=== PATIENT | male | born 1970 | race Caucasian/White ===

== ENCOUNTER 2024-03-05 04:08 | Day surgery (SDC) | payer OTHER ==
[2024-03-05] VITALS (236 sets, daily range): BP systolic 119–232; BP diastolic 65–152
[~2024-03-05] VITALS: Ht 182.9 cm; Wt 75.0 kg
[2024-03-05] MEDS ORDERED: diazePAM 5 MG/TAB PO PRN ×2 (07:30→08:30)
[2024-03-05] MEDS ORDERED: CYANOCOBALAMIN 500 MCG/TAB ( B12) PO PRN (07:30)
[2024-03-05] MEDS ORDERED: cloNIDine HCL 0.1 MG/TAB PO PRN (07:30)
[2024-03-05] MEDS ORDERED: FAMOTIDINE 20 MG/TAB PO PRN (07:30)
[2024-03-05] MEDS ORDERED: ALBUTEROL SULFATE 2.5 MG VIAL IN PRN (07:30)
[2024-03-05] MEDS ORDERED: SCOPOLAMINE 1.5 MG DIS TD PRN (07:30)
[2024-03-05] MEDS ORDERED: LACTATED RINGER'S 1,000 ML IV PRN ×3 (07:30→19:00)
[2024-03-05] MEDS ORDERED: PANTOPRAZOLE SODIUM Sesquihydr 40 MG/TAB PO PRN (07:30)
[2024-03-05] MEDS ORDERED: ASCORBIC ACID 4,000 MG in SODIUM CHLORIDE 0.9% 1,000 ML IV SCH (08:00)
[2024-03-05 08:07] LABS: BASO% 0.6 % (0-3); EOS% 4.4 % (0-8); HEMATOCRIT 41.5 % (39.0-50.0); HEMOGLOBIN 13.8 g/dl (14.0-18.0); IMMATURE GRANULOCYTES 0.2 % (0.0-5.0); LYMPH% 24.9 % (15-41); MEAN CELL VOLUME 94.3 fL CALC (80.0-100.0); MEAN CORPUSCULAR HGB 31.4 pG CALC (26.0-32.0); MEAN CORPUSCULAR HGB CONC 33.3 g/dL CAL (32.0-36.0); NEUT# 4.98 thou/uL (1.82-7.42); NEUT% 58.9 % (42-76); RED BLOOD COUNT 4.4 mill/uL (4.70-6.10); RED CELL DISTRI WIDTH 15.5 % (11.5-15.5)
[2024-03-05 08:19] LABS: ALBUMIN 4.2 g/dL (3.2-5.0); BILIRUBIN, TOTAL 0.4 mg/dL (0.2-1.3); CREATININE 0.8 mg/dL (0.7-1.3); POTASSIUM 4.4 mmol/l (3.5-5.1)
[2024-03-05] MEDS ORDERED: CARVEDILOL 25 MG/TAB PO SCH (08:30)
[2024-03-05] MEDS ORDERED: LISINOPRIL 20 MG/TAB PO SCH (08:30)
[2024-03-05] MEDS ORDERED: GABAPENTIN 300 MG/CAP PO SCH (08:30)
[2024-03-05] MEDS ORDERED: CLOPIDOGREL BISULFATE 75 MG/TAB TAB PO SCH (08:30)
[2024-03-05] MEDS ORDERED: NEURONTIN600 MG PO (08:36)
[2024-03-05] MEDS ORDERED: ASPIRIN LOW81 M1 PO (08:37)
[2024-03-05] MEDS ORDERED: ALTACE10 MG PO (08:37)
[2024-03-05] MEDS ORDERED: SOMA350 MG PO (08:37)
[2024-03-05] MEDS ORDERED: PLAVIX75 MG PO (08:38)
[2024-03-05] MEDS ORDERED: COREG6.25 MG PO (08:38)
[2024-03-05] MEDS ORDERED: AMLODIPINE BESYL5 MG PO (08:39)
[2024-03-05] MEDS ORDERED: cloNIDine HCL 0.1 MG/TAB VT PRN (09:05)
[2024-03-05] MEDS ORDERED: diazePAM 5 MG/TAB VT PRN (09:05)
[2024-03-05] MEDS ORDERED: ONDANSETRON HCl 4 MG/2 ML SDV IV PRN ×3 (09:05→19:00)
[2024-03-05] MEDS ORDERED: LIDOCAINE HCL 1% (10MG/ML) 100 MG/10 ML MDV VT PRN ×2 (09:05)
[2024-03-05] MEDS ORDERED: NALTREXONE HCL 50 MG/TAB VT PRN (09:05)
[2024-03-05] MEDS ORDERED: MAGNESIUM SULFATE HEPTAHYDRATE 100 ML IV PRN (09:05)
[2024-03-05] MEDS ORDERED: OCTREOTIDE ACETATE 100 MCG/VIAL SDV SC PRN (09:05)
[2024-03-05] MEDS ORDERED: POTASSIUM CHLORIDE 10 MEQ/50 ML BAG IV PRN (09:05)
[2024-03-05] MEDS ORDERED: PROPOFOL 100 ML IV PRN (09:05)
[2024-03-05] MEDS ORDERED: cloNIDine HYDROCHLORIDE 100 MCG/ML 10 ML INJ IV PRN (09:05)
[2024-03-05] MEDS ORDERED: DEXAMETHASONE SODIUM PHOSPHATE PF 10 MG/ML SDV IV PRN ×2 (09:05→19:00)
[2024-03-05] MEDS ORDERED: STERILE WATER FOR IRRIGATION 1,000 ML BTL IR PRN (09:05)
[2024-03-05] MEDS ORDERED: SUCCINYLCHOLINE CHLORIDE 20 MG/ML 10ML VIAL IV PRN (09:05)
[2024-03-05] MEDS ORDERED: MIDAZOLAM HCL 2 MG/2 ML VIAL IV PRN (09:05)
[2024-03-05] MEDS ORDERED: DiphenhydrAMINE HCL 50 MG/ML SDV IV PRN (09:05)
[2024-03-05] MEDS ORDERED: THIAMINE HCL 100 MG/ML 2ML VIAL IV PRN (09:05)
[2024-03-05] MEDS ORDERED: ROCURONIUM BROMIDE 10 MG/ML 5ML VIAL IV PRN (09:05)
[2024-03-05] MEDS ORDERED: PROPOFOL 10 MG/ML 100ML VIAL IV PRN (09:05)
[2024-03-05] MEDS ORDERED: LIDOCAINE HCL 1% (10MG/ML) 100 MG/10 ML MDV IV PRN (09:05)
[2024-03-05] MEDS ORDERED: PHENYLEPHRINE HCL 10 MG/ML VIAL ONE (10:45)
[2024-03-05] MEDS ORDERED: SODIUM CHLORIDE 0.9% 250 ML IV ONE (10:45)
[2024-03-05] MEDS ORDERED: LABETALOL HCL 100 MG/20 ML VIAL IV ONE (11:41)
[2024-03-05] MEDS ORDERED: hydrALAZINE HCL 20 MG/ML VIAL(1 ML) IV SCH (13:30)
[2024-03-05] MEDS ORDERED: KLONOPIN2 MG PO (15:53)
[2024-03-05] MEDS ORDERED: NALTREXONE50 MG PO (15:53)
[2024-03-05] MEDS ORDERED: CLONIDINE0.1 MG PO (15:53)
[2024-03-05] MEDS ORDERED: KETOROLAC TROMETHAMINE 30 MG/ML SDV IV PRN (19:00)
[2024-03-05] MEDS ORDERED: ACETAMINOPHEN 1,000 MG/100 ML VIAL IV PRN (19:00)
[2024-03-05] MEDS ORDERED: ACETAMINOPHEN 500 MG TAB PO PRN (19:00)
[2024-03-05] MEDS ORDERED: HALOPERIDOL LACTATE 5 MG/ML SDV IV PRN (19:00)
[2024-03-05] MEDS ORDERED: LORazepam 2 MG/ML IV PRN ×2 (19:00)
[2024-03-05] MEDS ORDERED: PROMETHAZINE HCL 25 MG in SODIUM CHLORIDE 0.9% 50 ML IV PRN (19:00)
[2024-03-05] MEDS ORDERED: PROMETHAZINE HCL 12.5 MG in SODIUM CHLORIDE 0.9% 50 ML IV PRN (19:00)
[2024-03-05] MEDS ORDERED: PATIENT' OWN MED CONTROLLED 1 EA DOSE IV PRN (21:00)
[2024-03-05] MEDS ORDERED: clonazePAM 1 MG/TAB PO PRN (23:00)
[2024-03-05] MEDS ORDERED: cloNIDine HCL 0.1 MG/TAB PO SCH (23:00)
[2024-03-06] VITALS (20 sets, daily range): BP systolic 131–174; BP diastolic 77–119
[2024-03-06] MEDS ORDERED: cloNIDine HCL 0.1 MG/TAB PO PRN (04:00)
[2024-03-06] MEDS ORDERED: clonazePAM 1 MG/TAB PO PRN ×2 (04:00→08:00)
[2024-03-06 04:32] LABS: BASO% 0.1 % (0-3); HEMATOCRIT 41.8 % (39.0-50.0); HEMOGLOBIN 14.3 g/dl (14.0-18.0); IMMATURE GRANULOCYTES 0.9 % (0.0-5.0); LYMPH% 10.4 % (15-41); MEAN CELL VOLUME 89.9 fL CALC (80.0-100.0); MEAN CORPUSCULAR HGB 30.8 pG CALC (26.0-32.0); MEAN CORPUSCULAR HGB CONC 34.2 g/dL CAL (32.0-36.0); MONO% 4.5 % (2-13); NEUT# 9.07 thou/uL (1.82-7.42); NEUT% 84.1 % (42-76); RED BLOOD COUNT 4.65 mill/uL (4.70-6.10)
[2024-03-06 04:44] LABS: BILIRUBIN, TOTAL 0.5 mg/dL (0.2-1.3); CREATININE 0.8 mg/dL (0.7-1.3); TOTAL PROTEIN 6.7 g/dL (6.3-8.2)
[2024-03-06 04:59] LABS: POTASSIUM 3.2 mmol/l (3.5-5.1)
[2024-03-06] MEDS ORDERED: NALTREXONE HCL 50 MG/TAB PO SCH (08:00)
[2024-03-06] MEDS ORDERED: PANTOPRAZOLE SODIUM Sesquihydr 40 MG/TAB PO SCH (08:00)
[2024-03-06] MEDS ORDERED: cloNIDine HCL 0.1 MG/TAB PO SCH (08:00)
[2024-03-06] MEDS ORDERED: ACETAMINOPHEN 325 MG/TAB PO SCH (08:00)
[2024-03-06] MEDS ORDERED: ACETAMINOPHEN 500 MG TAB PO PRN (09:00)
[2024-03-06] MEDS ORDERED: LISINOPRIL 20 MG/TAB PO SCH (09:00)
[2024-03-06] MEDS ORDERED: GABAPENTIN 300 MG/CAP PO SCH (09:00)
[2024-03-06] MEDS ORDERED: CLOPIDOGREL BISULFATE 75 MG/TAB TAB PO SCH (09:00)
[2024-03-06] MEDS ORDERED: CYCLOBENZAPRINE HCL 5 MG TAB PO SCH (09:00)
[2024-03-06] MEDS ORDERED: amLODIPine BESYLATE 5 MG/TAB PO SCH (09:00)
[2024-03-06] MEDS ORDERED: ASPIRIN EC 81 MG/TAB PO SCH (09:00)
[2024-03-06] MEDS ORDERED: Cholecalciferol 2,000 UNIT/TAB PO PRN (09:00)
[2024-03-06] MEDS ORDERED: MAGNESIUM OXIDE 400 MG/TAB PO PRN (09:00)
[2024-03-06] MEDS ORDERED: CARVEDILOL 25 MG/TAB PO SCH (09:00)
[2024-03-06] MEDS ORDERED: KETOROLAC TROMETHAMINE 30 MG/ML SDV IV SCH (10:30)
== END 2024-03-06 10:40 | disposition left against medical advice (07) | DRG 894 ==
LOC: ANR 04:08 → MS2 04:08 → ANR 09:00 → ICU 16:41 → MS2 03-06 07:11 → ANR 03-06 10:40
PROVIDERS: ATTEND Anesthesiology Critical Care Medicine
DX: F11.20 Opioid dependence, uncomplicated (principal)
CPT/HCPCS: J1100; J2060; J2354; J3475; J3490